=== PATIENT | female | born 1995 | race African-American/Black ===

== ENCOUNTER 2024-03-02 15:56 | Observation (INO) | payer SELFPAY ==
--- NOTE | ~2024-03-02 | US_ITS ---
EXAMINATION: US pelvic complete w TV DATE: 03/03/2024 14:04 INDICATION: Pelvic mass. TECHNIQUE: Multiple transabdominal and transvaginal sonographic images of the pelvis were obtained. COMPARISON: CT abdomen and pelvis 03/02/2024 FINDINGS: TRANSABDOMINAL ULTRASOUND: The uterus measures 9.9 x 4.4 x 5.0 cm. There is physiologic free fluid in the pelvis. TRANSVAGINAL ULTRASOUND: The endometrial complex measures 4 mm in thickness. There is an 8.7 x 5.9 x 6.9 cm hypoechoic mass at the posterior margin of the uterus. The right ovary measures 2.7 x 2.2 x 2.5 cm. The left ovary donna ures 3.1 x 1.5 x 2.6 cm. There is normal vascular flow in the ovaries. IMPRESSION: 1. 8.7 cm mass at the posterior margin of the uterus, consistent with a subserosal fibroid. Reviewed, dictated and finalized at location A. GRINDER IMPRESSION: 1. 8.7 cm mass at the posterior margin of the uterus, consistent with a subsero abiel fibroid.
--- NOTE | ~2024-03-02 | CT_ITS ---
CLINICAL INDICATION: Right lower quadrant wound COMPARISON: None. TECHNIQUE: Multiple contiguous axial images of the abdomen and pelvis were performed following the ad ministration of with 100 mL Omnipaque-350 intravenous contrast The dose-length product (DLP) was 1125.98 mGy-cm. Automated exposure control and iterative reconstruction technique were employed. FINDINGS/OBSERVATIONS: Visualized lower thorax: The bilateral lung bases are clear. The heart is of normal size, without pericardial effusion. Small hiatal hernia is present. Liver: The liver is enlarged measuring 19.7 cm in longitudinal dimension. Fatty infiltration is also noted. Gallbladder and biliary system: The gallbladder is minimally distended, and otherwise unremarkable. Pancreas: The pancreas enhances homogeneously without ductal dilatation. Spleen: The spleen enhances homogeneously and is not enlarged measuring 8 cm in longitudinal dimension. Kidneys: The bilateral kidneys enhance symmetrically without hydronephrosis or renal calculi. Adrenal glands: Unremarkable. Gastrointestinal tract: Colonic diverticulosis without surrounding inflammatory change. Appendix: The air-filled appendix is of normal caliber (axial series, images 108-127 or prior) Vasculature: The bilateral gonadal veins are enlarged with extensive varices in the pelvis, findings suggesting pe lvic congestion syndrome for which clinical correlation is needed. Lymph nodes: Scattered nonpathologically enlarged lymph nodes are identified within the mesentery and retroperiton eum, not uncommon for a patient of this age. Pelvic structures: The bladder is decompressed, and otherwise unremarkable. The uterus is anteverted and anteflexed. A heterogeneous mass is identified within the deep pelvis, c ranial to the uterus, possibly (however not likely) an enlarged fibroid measuring 7 x 6 x 8.2 cm (ant erior to posterior x medial to lateral x cranial to caudal dimension). The remainder of the uterus de monstrates an otherwise smooth contour. The right ovary is not definitively visualized. Small bowel is tethered to this mass without obstruction. Free fluid is identified within the pelvis, although not more than one would expect for physiologic f ree fluid in a patient of this age. Body wall and musculoskeletal: Fat-containing umbilical hernia. Within the right lower quadrant of the pannus is skin thickening and infiltration of the underlying s oft tissues without a discrete abscess additional abnormality. Degenerative disease is identified within the lower lumbar spine, with grade 1 anterolisthesis of L4 on L5 with a protruding disc (which demonstrates calcification) at this level. Spondylosis is also noted at this level. IMPRESSION: Indeterminate 8.2 cm mass within the right hemipelvis, as detailed above. Superficial soft tissue infiltration within the area of clinical concern. Severe degenerative disease at the level of L4/L5, as detailed above. Fatty infiltration of an enlarged liver Reviewed, dictated and finalized at location A. ER OPERATOR
[2024-03-02 15:58] VITALS: BP 148/93; PULSE 99; RESP 16; TEMP 36.3; O2SAT 100
--- NOTE | 2024-03-02 17:13 | ED_ITS ---
HPI - Wound/Laceration General Chief Complaint: Wound/Laceration Stated Complaint: wound on abdomen Time Seen by Provider: 03/02/24 17:04 History of Present Illness HPI narrative: 28 year-old female with history of type 2 diabetes on metformin presents to emergency department for a wound to the right lower quadrant of her abdomen. Patient states there is a small pimple to the right lower quadrant of her abdomen that she noticed 2 weeks ago. States she believes that her jeans rubbed on the wound and caused it to enlarge 2 days ago. The patient states she noticed some clear drainage from the fluid a few days ago. She reports pain to the area. Denies fever, nausea vomiting, changes in stool habits. She states that she does not check her blood sugar at home. States she takes her metformin a few times a week but does not take it daily as prescribed. Related Data Home Medications Medication Instructions Recorded Confirmed metformin 1,000 mg tablet 1,000 mg PO BID 03/02/24 03/02/24 Allergies Allergy/AdvReac Type Severity Reaction Status Date / Time No Known Allergies Allergy Verified 03/02/24 16:00 Review of Systems Review of Systems: All systems reviewed & are unremarkable except as noted in HPI and below PMFSH Past Medical History Medical History (Updated 03/02/24 @ 23:58 by Katy Villavicencio DO) Obesity (BMI 30-39.9) Type 2 diabetes mellitus Surgical History Surgical History (Updated 03/02/24 @ 23:16 by Katy Villavicencio DO) No history of previous surgery Family History Family History Grandparent Congestive heart failure Hypertension Diabetes mellitus Sibling Congestive heart failure Diabetes mellitus Mother Hypertension Social History Social History (Updated 03/02/24 @ 23:29 by Katy Villavicencio DO) Social History: She reports that she is single and is never been . She is with her a boyfriend of 4 months currently. 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 She reports that her sister lives with her and that she helps provide care for her sister who has multiple complications due to diabetes. She has a pit bull at home. She is a lifelong nonsmoker and does not drink alcohol. Code status: Full code Surrogate decision maker: Mother Smoking status: Never smoker Substance use type: marijuana Last use: 03/02/24 Do You Feel Safe in your Home?: Yes Lack of Transportation: No Lack of Food: Never True Current Housing: I Have Housing Concerned About Future Housing: No Difficulty Paying Gas/Electric Bills: No Difficulty Paying for Meds: YES Currently Unemployed: No Education: Bachelor's Degree Difficulty w/ Childcare or Family Care: No Spiritual care concerns: No Exam Narrative: GENERAL: Well-appearing, well-nourished, and in no acute distress. HEAD: Normocephalic, atraumatic. EYES: EOMI. ENT: Nares clear, no rhinorrhea or epistaxis. Mucous membranes moist. NECK: Supple. CHEST: Clear to auscultation. No respiratory distress. HEART: Regular rate and rhythm. No murmur heard. Normal peripheral pulses. ABDOMEN: Soft, nontender, nondistended, normal active bowel sounds. See skin exam EXTREMITIES: Normal range of motion. No edema. SKIN: 4 cm x 3 cm oval-shaped ulcerative wound to the right lower quadrant of the abdomen with malodorous purulent drainage and exposed adipose tissue. Surrounding induration with No crepitus or vesicles. NEURO: No focal deficits. Alert and oriented x3 Course Vital Signs Vital signs: Vital Signs Temperature 97.3 F L 03/02/24 15:58 Pulse Rate 99 03/02/24 15:58 Respiratory Rate 16 03/02/24 15:58 Blood Pressure 148/93 H 03/02/24 15:58 Pulse Oximetry 100 03/02/24 15:58 Temperature 97.4 F L 03/02/24 21:26 Pulse Rate 78 03/02/24 21:26 Respiratory Rate 14 03/02/24 21:26 Blood Pressure 136/81 03/02/24 21:26 Pulse Oximetry 100 03/02/24 21:26 Oxygen Delivery Room Air 03/02/24 22:15 MDM - Wound/Laceration MDM Narrative Medical decision making narrative: 28-year-old female history of type 2 diabetes presents to emergency department for when to right lower quadrant. Vitals with elevated blood pressure 148/93, otherwise unremarkable. Exam is significant for the above. CBC shows no leukocytosis. CRP is elevated to 2.2 and ESR is elevated to 23. Chemistries without significant findings but does show hyperglycemia of 254 with a normal bicarb and anion gap. is negative. Lactic normal 1.3. CT abdomen pelvis shows an indeterminate 8.2 cm mass within the right hemipelvis, possibly enlarged uterine fibroid. Within the right lower quadrant of the pannus is skin thickening and infiltration of the underlying soft tissues without a discrete abscess. There is fatty infiltration of an enlarged liver. Patient updated on workup. Blood cultures procalcitonin are pending. Feel she would benefit from IV antibiotics and wound care, possibly may need to see General surgery for wound debridement. Patient was started on vancomycin Lab Data 03/02/24 17:28 03/02/24 17:28 Labs: Lab Results 03/02/24 03/02/24 03/02/24 Range/Units 17:28 17:28 17:28 WBC 7.3 (4.5-10.0) K/mm3 RBC 4.99 (4.2-5.4) M/mm3 Hgb 12.8 (12.0-15.0) g/dL Hct 40.0 (37.0-47.0) % MCV 80.2 (80-100) fl MCH 25.7 L (26-34) pg MCHC 32.0 (32-36) g/dl RDW 13.8 (11.5-14.5) % Plt Count 412 H (150-375) k/mm3 MPV 9.9 (7.4-10.4) fl Immature Gran % (Auto) 0.4 (0-0.5) % Neut % (Auto) 63.8 (45.5-73.1) % Lymph % (Auto) 26.1 (18.3-44.2) % [place] % (Auto) 8.2 (2.6-8.5) % Eos % (Auto) 1.0 (0-4.4) % Baso % (Auto) 0.5 (0.2-1.2) % Lymph # (Auto) 1.91 (0.9-3.2) K/mm3 [place] # (Auto) 0.6 (0.1-0.6) K/mm3 Eos # (Auto) 0.1 (0-0.3) K/mm3 Baso # (Auto) 0.0 (0.0-0.1) K/mm3 Abs Immat Gran (auto) 0.03 (0.00-0.031) K/mm3 Absolute Neuts (auto) 4.7 (1.3-6.7) K/mm3 Absolute Nucleated RBC 0.000 (0.0-0.012) K/mm3 Nucleated RBC % 0.0 (0.0-0.2) % ESR 23 H (0-20) mm/hr Sodium 136 L (137-145) mmol/L Potassium 3.6 (3.4-5.0) mmol/L Chloride 100 (98-107) mmol/L Carbon Dioxide 27 (22-30) mmol/L Anion Gap 9 (4-12) mmol/L BUN 10 (7-17) mg/dL Creatinine 0.60 L 0.60 L (0.7-1.0) mg/dL Estim Creat Clear Calc 146 146 ml/min Estimated GFR > 60 (59 - ) Glucose (65-110) mg/dL Lactic Acid (0.7-2.0) mmol/L Calcium (8.4-10.2) mg/dL Total Bilirubin (0.2-1.3) mg/dL AST (14-36) U/L ALT (6-35) U/L Alkaline Phosphatase (38-126) U/L C-Reactive Protein (<1.0) mg/dL Total Protein (6.3-8.2) g/dL Albumin (3.5-5.1) g/dL Procalcitonin ng/mL POC Urine HCG, Qual (Negative) 03/02/24 03/02/24 Range/Units 17:28 18:16 WBC (4.5-10.0) K/mm3 RBC (4.2-5.4) M/mm3 Hgb (12.0-15.0) g/dL Hct (37.0-47.0) % MCV (80-100) fl MCH (26-34) pg MCHC (32-36) g/dl RDW (11.5-14.5) % Plt Count (150-375) k/mm3 MPV (7.4-10.4) fl Immature Gran % (Auto) (0-0.5) % Neut % (Auto) (45.5-73.1) % Lymph % (Auto) (18.3-44.2) % [place] % (Auto) (2.6-8.5) % Eos % (Auto) (0-4.4) % Baso % (Auto) (0.2-1.2) % Lymph # (Auto) (0.9-3.2) K/mm3 [place] # (Auto) (0.1-0.6) K/mm3 Eos # (Auto) (0-0.3) K/mm3 Baso # (Auto) (0.0-0.1) K/mm3 Abs Immat Gran (auto) (0.00-0.031) K/mm3 Absolute Neuts (auto) (1.3-6.7) K/mm3 Absolute Nucleated RBC (0.0-0.012) K/mm3 Nucleated RBC % (0.0-0.2) % ESR (0-20) mm/hr Sodium (137-145) mmol/L Potassium (3.4-5.0) mmol/L Chloride (98-107) mmol/L Carbon Dioxide (22-30) mmol/L Anion Gap (4-12) mmol/L BUN (7-17) mg/dL Creatinine (0.7-1.0) mg/dL Estim Creat Clear Calc ml/min Estimated GFR > 60 (59 - ) Glucose 254 H (65-110) mg/dL Lactic Acid 1.3 (0.7-2.0) mmol/L Calcium 9.5 (8.4-10.2) mg/dL Total Bilirubin 0.6 (0.2-1.3) mg/dL AST 29 (14-36) U/L ALT 19 (6-35) U/L Alkaline Phosphatase 94 (38-126) U/L C-Reactive Protein 2.2 H (<1.0) mg/dL Total Protein 9.0 H (6.3-8.2) g/dL Albumin 4.2 (3.5-5.1) g/dL Procalcitonin 0.1 ng/mL POC Urine HCG, Qual Negative (Negative) Discharge Plan Discharge Clinical Impression: Wound, open, abdominal wall, anterior Qualifiers: Encounter type: initial encounter Qualified Code(s): S31.109A - Unspecified open wound of abdominal wall, unspecified quadrant without penetration into peritoneal cavity, initial encounter Patient Disposition: Still a Patient Condition: Stable
[2024-03-02 17:45] LABS: Basophils Percent Auto 0.5 % (0.2-1.2); Eosinophils Absolute Auto 0.1 K/mm3 (0-0.3); Hemoglobin 12.8 g/dL (12.0-15.0); Immature Granulocyte Absolute 0.03 K/mm3 (0.00-0.031); Immature Granulocyte Percent A 0.4 % (0-0.5); Lymphocytes Absolute Auto 1.91 K/mm3 (0.9-3.2); Lymphocytes Percent Auto 26.1 % (18.3-44.2); Mean Corpuscular Hemoglobin 25.7 pg (26-34); Mean Corpuscular Volume 80.2 fl (80-100); Mean Platelet Volume 9.9 fl (7.4-10.4); Monocytes Absolute Auto 0.6 K/mm3 (0.1-0.6); Monocytes Percent Auto 8.2 % (2.6-8.5); Neutrophils Absolute Auto 4.7 K/mm3 (1.3-6.7); Neutrophils Percent Auto 63.8 % (45.5-73.1); Platelet Count Result 412 k/mm3 (150-375); Red Blood Count 4.99 M/mm3 (4.2-5.4); Red Cell Distribution Width 13.8 % (11.5-14.5); White Blood Count 7.3 K/mm3 (4.5-10.0)
[2024-03-02 18:00] LABS: Lactic Acid Reflex 1.3 mmol/L (0.7-2.0)
[2024-03-02 18:04] LABS: Alanine Aminotransferase 19 U/L (6-35); Albumin Level 4.2 g/dL (3.5-5.1); Alkaline Phosphatase 94 U/L (38-126); Anion Gap 9 mmol/L (4-12); Aspartate Amino Transferase 29 U/L (14-36); Bilirubin,Total 0.6 mg/dL (0.2-1.3); Blood Urea Nitrogen 10 mg/dL (7-17); CRP 2.2 mg/dL (<1.0); Calcium 9.5 mg/dL (8.4-10.2); Carbon Dioxide 27 mmol/L (22-30); Chloride 100 mmol/L (98-107); Estimated CRCL calculation 146 ml/min; Estimated Glomerular Filt Rate > 60; Glucose 254 mg/dL (65-110); Potassium 3.6 mmol/L (3.4-5.0); Sodium 136 mmol/L (137-145)
[2024-03-02 18:17] LABS: BEDSIDEPREGUCG Negative (Negative)
[2024-03-02 18:30] LABS: Erythrocyte Sedimentation Rate 23 mm/hr (0-20)
[2024-03-02 19:10] VITALS: BP 138/83; PULSE 98; RESP 16; TEMP 36.6; O2SAT 100
[2024-03-02] MEDS: MORPHINE SULFATE (*CRX) 4 MG/ML INJ IV PUSH (19:11)
--- NOTE | 2024-03-02 19:57 | PM.IMHP ---
H&P: HPI History of Present Illness Date/Time: 03/02/24 19:57 Chief Complaint: Abdominal wound Narrative: 28-year-old female with past medical history of uncontrolled type 2 diabetes mellitus and obesity who presented to the ER from home due to a wound to her right lower pannus. Patient reported that 2 weeks ago she had a small pimple to the right lower abdomen. She reported that she did not pick or prod the area. The pustule did open on its own. It was a small area consistent with prior such sites that she has had before. A few days ago she noticed a small amount of clear fluid draining from the area. Then 2 days ago she noticed a wound was much larger and was tender to touch. She also noticed some yellow tissue in the area. She has had diabetes since approximately 2016. She is on metformin is post to take it b.i.d.. She reports that she frequently misses her metformin due to her busy work schedule. She does not check her blood sugars. Her glucoses on arrival to the ER were around 250. She has not had any fevers, chills, abdominal pain, nausea, vomiting or urinary symptoms. CT scan of the abdomen pelvis were performed in the ER and demonstrated superficial soft tissue infiltration in the area of the open wound. She also had incidental finding of indeterminate E 0.2 cm by 6 x 7 cm mass in the right hemipelvis. She reports a distant history of metrorrhagia for which she was placed on control pills. She reports she stopped the control pills in May in his had normal menstrual cycles since then. She denies any excessive menstrual cramps or abdominal pain. She had a negative urine test in the ER. She denies any urinary frequency or symptoms. She states that she is currently at the end of her menstrual cycle. She has developed hirsutism was a moved since around the beginning of . She is obese. She states her boyfriend of 4 months this told her that she occasionally snores. She denies any excessive daytime fatigue or sleepiness. It sounds as if her weight has been stable. She has not followed up with a garage supervisor recently. She has not followed up with an eye doctor in the last year or 2. At the time of my evaluation the patient's right eye did not initially move in a conjugate manner with the left eye but this resolved on re-evaluation. She reports that her father has a lazy eye but she has never been diagnosed with visual issues. She denies double vision. Review of Systems Review of Systems: 12 systems were reviewed with pertinent positives and negatives per HPI. Except as documented in the HPI, all other systems were reviewed and are negative. [facility] Past Medical History Medical History (Updated 03/02/24 @ 23:58 by Katy Villavicencio DO) Obesity (BMI 30-39.9) Type 2 diabetes mellitus Surgical History Surgical History (Updated 03/02/24 @ 23:16 by Katy Villavicencio DO) No history of previous surgery Family History Family History Grandparent Congestive heart failure Hypertension Diabetes mellitus Sibling Congestive heart failure Diabetes mellitus Mother Hypertension Social History Social History (Updated 03/02/24 @ 23:29 by Katy Villavicencio DO) Social History: She reports that she is single and is never been . She is with her a boyfriend of 4 months currently. 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 She reports that her sister lives with her and that she helps provide care for her sister who has multiple complications due to diabetes. She has a pit bull at home. She is a lifelong nonsmoker and does not drink alcohol. Code status: Full code Surrogate decision maker: Mother Smoking status: Never smoker Substance use type: marijuana Last use: 03/02/24 Do You Feel Safe in your Home?: Yes Lack of Transportation: No Lack of Food: Never True Current Housing: I Have Housing Concerned About Future Housing: No Difficulty Paying Gas/Electric Bills: No Difficulty Paying for Meds: YES Currently Unemployed: No Education: Bachelor's Degree Difficulty w/ Childcare or Family Care: No Spiritual care concerns: No Meds Home Medications and Allergies Home Medications Medication Instructions Recorded Confirmed Type metformin 1,000 mg tablet 1,000 mg PO BID 03/02/24 03/02/24 History Allergies Allergy/AdvReac Type Severity Reaction Status Date / Time No Known Allergies Allergy Verified 03/02/24 16:00 Vital Signs Vital Signs - 24 hr 03/02/24 15:58 Temperature 97.3 F L Pulse Rate 99 Respiratory Rate 16 Blood Pressure 148/93 H Pulse Oximetry 100 Exam Narrative: Weight 98.7 kg BMI 35.1 Const: Other: Obese, no acute distress, appears stated age HENMT: Other: Mucous membranes are tacky, lips are dry and peeling, head is normocephalic atraumatic Eyes: Other: No conjunctival pallor, no scleral icterus, pupils are equal and reactive, patient transient delay and medial motion of the right eye Neck: Other: Large neck circumference, no JVD, no obvious thyromegaly Chest: Other: Clear to auscultation bilaterally, no increased work of breathing Resp: Other: Clear to auscultation bilaterally, no increased work of breathing Cardio: Other: Regular rate, regular rhythm, 2+ bilateral radial pedal pulses GI: Other: Soft, nontender, obese, open wound to the right lower pannus with a central area of yellow overlying tissue questionable necrotic fat, small amount of serous drainage, no surrounding erythema or warmth, no obvious areas of induration or fluctuance Skin: Other: Wound of the anterior right lower abdominal wall at the right lower pannus as discussed above, small area of firm nodular darkly pigmented skin about 3 in superior and 2 in lateral from that wound consistent with likely previous area of folliculitis that is resolved Neuro: Other: Alert oriented, speech is clear, no facial asymmetry, transient lag of the right eye in the medial direction which resolved on repeat evaluation, otherwise no localizing neurologic deficits noted during the course of conversation. Extrem: Other: No clubbing, cyanosis or edema, shoulder the feet are dirty, no wounds noted to the feet, pes planus of the left foot Psych: Other: Appropriate mood and affect, pleasant and cooperative, judgment and insight intact H&P: Results Labs Labs: Laboratory Tests 03/02/24 17:28 03/02/24 17:28 03/02/24 03/02/24 03/02/24 17:28 17:28 17:28 WBC 7.3 RBC 4.99 Hgb 12.8 Hct 40.0 MCV 80.2 MCH 25.7 L MCHC 32.0 RDW 13.8 Plt Count 412 H MPV 9.9 Immature Gran % (Auto) 0.4 Neut % (Auto) 63.8 Lymph % (Auto) 26.1 [place] % (Auto) 8.2 Eos % (Auto) 1.0 Baso % (Auto) 0.5 Lymph # (Auto) 1.91 [place] # (Auto) 0.6 Eos # (Auto) 0.1 Baso # (Auto) 0.0 Abs Immat Gran (auto) 0.03 Absolute Neuts (auto) 4.7 Absolute Nucleated RBC 0.000 Nucleated RBC % 0.0 ESR 23 H Sodium 136 L Potassium 3.6 Chloride 100 Carbon Dioxide 27 Anion Gap 9 BUN 10 Creatinine 0.60 L 0.60 L Estim Creat Clear Calc 146 146 Estimated GFR > 60 Glucose Hemoglobin A1c Lactic Acid Calcium Total Bilirubin AST ALT Alkaline Phosphatase C-Reactive Protein Total Protein Albumin Procalcitonin POC Urine HCG, Qual 03/02/24 03/02/24 03/02/24 17:28 18:16 21:51 WBC RBC Hgb Hct MCV MCH MCHC RDW Plt Count MPV Immature Gran % (Auto) Neut % (Auto) Lymph % (Auto) [place] % (Auto) Eos % (Auto) Baso % (Auto) Lymph # (Auto) [place] # (Auto) Eos # (Auto) Baso # (Auto) Abs Immat Gran (auto) Absolute Neuts (auto) Absolute Nucleated RBC Nucleated RBC % ESR Sodium Potassium Chloride Carbon Dioxide Anion Gap BUN Creatinine Estim Creat Clear Calc Estimated GFR > 60 Glucose 254 H Hemoglobin A1c 13.4 H Lactic Acid 1.3 Calcium 9.5 Total Bilirubin 0.6 AST 29 ALT 19 Alkaline Phosphatase 94 C-Reactive Protein 2.2 H Total Protein 9.0 H Albumin 4.2 Procalcitonin 0.1 POC Urine HCG, Qual Negative Impressions Abdomen/Pelvis CT 03/02/24 18:57 IMPRESSION: Indeterminate 8.2 cm mass within the right hemipelvis, as detailed above. Superficial soft tissue infiltration within the area of clinical concern. Severe degenerative disease at the level of L4/L5, as detailed above. Fatty infiltration of an enlarged liver Assessment and Plan Assessment and plan (1) Wound, open, abdominal wall, anterior: Qualifiers: Encounter type: initial encounter Qualified Code(s): S31.109A - Unspecified open wound of abdominal wall, unspecified quadrant without penetration into peritoneal cavity, initial encounter Code(s): S31.109A - Unspecified open wound of abdominal wall, unspecified quadrant without penetration into peritoneal cavity, initial encounter Status: Acute Assessment and Plan: Patient's wound does not appear to be overtly infected but she does have mild elevated CRP and ESR. She does have a central area of tissue the appears somewhat necrotic seems consistent with may be fat necrosis. Will consult wound care for localized debridement and wound management. Will place patient on vancomycin and wound cultures have been obtained and are pending. Will repeat CBC in a.m.. (2) Type 2 diabetes mellitus with hyperglycemia, without long-term current use of insulin: Code(s): E11.65 - Type 2 diabetes mellitus with hyperglycemia Status: Acute Assessment and Plan: I discussed the importance of compliance with medication therapy with the patient and the importance of euglycemia in treating wounds affectively. Other risks of hyperglycemia and uncontrolled diabetes were also discussed with patient including the risk of diabetic neuropathy, nephropathy and retinopathy. I encouraged patient to follow-up with her aircraft instrument engineer/closing coordinator. Will resume patient's home metformin. Patient will likely need secondary medications for glycemic control. Some of the patient's hyperglycemia may also be due to acute wound/?Infection. Will place patient on low-dose sliding scale insulin (patient is insulin naive) with Accu-Cheks a.c. HS and hypoglycemia protocol as needed. Consistent carbohydrate diet has been ordered. (3) Pelvic mass: Code(s): R19.00 - Intra-abdominal and pelvic swelling, mass and lump, unspecified site Status: Acute Assessment and Plan: Patient he has a follow-up with apiculture teacher as outpatient for pelvic and transvaginal ultrasound. Patient is having normal menstrual cycles more so recently but does have relatively recent development of Hirsutism within the last 4 years. She may have underlying PCOS, ovarian mass or according to radiology less likely uterine fibroid. Patient is not having acute symptoms of this at this time and can not be evaluated in the outpatient setting. Plan Patient has been admitted as observation status. Quality VTE Prophylaxis VTE prophylaxis: pharmacologic ordered (Lovenox 40 mg subQ daily.) Hospitalist [facility] Advance Care Plan I have confirmed that the patient's Advanced Care Plan is present, code status is documented, or surrogate decision maker is listed in patient medical record.: Yes Medication Reconciliation I have utilized all available resources to obtain, update and review the patients current medications (includes all prescriptions, OTC, herbals, cannabis, and nutritional supplements).: Yes
[2024-03-02 20:05] LABS: Procalcitonin 0.1 ng/mL
[2024-03-02] MEDS: VANCOMYCIN 1,500 MG/NS 500 ML 1,500 MG/500 ML BAG 250 MG IVPB (20:11)
[2024-03-02 20:21] LABS: Estimated CRCL calculation 146 ml/min; Estimated Glomerular Filt Rate > 60
[2024-03-02 21:26] VITALS: BP 136/81; PULSE 78; RESP 14; TEMP 36.3; O2SAT 100; BMI 35.1
[2024-03-02 22:23] LABS: Hemoglobin A1C 13.4 % (<5.7)
[2024-03-03 05:29] VITALS: BP 114/67; PULSE 71; RESP 12; TEMP 36.2; O2SAT 100
[2024-03-03 06:46] LABS: Basophils Percent Auto 0.4 % (0.2-1.2); Eosinophils Absolute Auto 0.1 K/mm3 (0-0.3); Eosinophils Percent Auto 1.7 % (0-4.4); Hematocrit 37.9 % (37.0-47.0); Hemoglobin 11.4 g/dL (12.0-15.0); Immature Granulocyte Absolute 0.03 K/mm3 (0.00-0.031); Immature Granulocyte Percent A 0.4 % (0-0.5); Lymphocytes Absolute Auto 1.92 K/mm3 (0.9-3.2); Lymphocytes Percent Auto 23.2 % (18.3-44.2); Mean Corpuscular HGB Conc 30.1 g/dl (32-36); Mean Corpuscular Hemoglobin 24.5 pg (26-34); Mean Corpuscular Volume 81.3 fl (80-100); Mean Platelet Volume 9.9 fl (7.4-10.4); Monocytes Absolute Auto 0.7 K/mm3 (0.1-0.6); Monocytes Percent Auto 8.8 % (2.6-8.5); Neutrophils Absolute Auto 5.4 K/mm3 (1.3-6.7); Neutrophils Percent Auto 65.5 % (45.5-73.1); Platelet Count Result 390 k/mm3 (150-375); Red Blood Count 4.66 M/mm3 (4.2-5.4); White Blood Count 8.3 K/mm3 (4.5-10.0)
[2024-03-03 07:00] LABS: Anion Gap 6 mmol/L (4-12); Blood Urea Nitrogen 9 mg/dL (7-17); Calcium 8.7 mg/dL (8.4-10.2); Carbon Dioxide 25 mmol/L (22-30); Chloride 104 mmol/L (98-107); Estimated CRCL calculation 138 ml/min; Estimated Glomerular Filt Rate > 60; Glucose 192 mg/dL (65-110); Potassium 3.4 mmol/L (3.4-5.0); Sodium 135 mmol/L (137-145)
[2024-03-03 07:33] LABS: Glucose Point of Care 201 mg/dl (65-105)
[2024-03-03 08:04] VITALS: O2SAT 100
[2024-03-03] MEDS: ENOXAPARIN 40 MG/0.4 ML SYRINGE SUB-Q (08:27)
[2024-03-03] MEDS: VANCOMYCIN 1,500 MG/NS 500 ML 1,500 MG/500 ML BAG 250 MG IVPB ×2 (08:27→20:56)
[2024-03-03] MEDS: POTASSIUM CHLORIDE 20 MEQ ER TABLET 40 MEQ PO (08:32)
[2024-03-03] MEDS: metFORMIN HCL 500 MG TABLET 1000 MG PO ×2 (08:32→16:47)
[2024-03-03] MEDS: HYDROcodone/acetaminophen (*CRX) 5-325 MG TABLET 1 TAB PO ×2 (09:08→18:40)
--- NOTE | 2024-03-03 09:10 | P.CONGS_ITS ---
Assessment and Plan Assessment and plan (1) Wound, open, abdominal wall, anterior: Qualifiers: Encounter type: initial encounter Qualified Code(s): S31.109A - Unspecified open wound of abdominal wall, unspecified quadrant without penetr ation into peritoneal cavity, initial encounter Code(s): S31.109A - Unspecified open wound of abdominal wall, unspecified quadrant without penetration into peritoneal cavity, initial encounter Status: Acute Assessment and Plan: The patient has a necrotic RLQ abdominal wound in the setting of uncontrolled diabetes. CT scan does not show any deeper abscess and there does not appear to be any significant surrounding cellulitis on exam. There is some necrotic tissue in the center of the wound that would benefit from debridement, which could be done at the bedside. I discussed the procedure, risks, benefits, and alternatives with the patient. She agrees to proceed. We also discussed the need for daily wound care following the procedure, which the patient feels she can handle doing at home. I will have the nurse gather supplies and consent with plans to proceed with debridement today. (2) Type 2 diabetes mellitus with hyperglycemia, without long-term current use of insulin: Code(s): E11.65 - Type 2 diabetes mellitus with hyperglycemia Status: Acute Assessment and Plan: Uncontrolled type II diabetes with hemoglobin A1C 13.4. Discussed the importance of glycemic control with the patient in the setting of a wound. She was educated on the importance of complying with her diet and monitoring her diabetes at home. Management per Hospitalist. (3) Pelvic mass: Code(s): R19.00 - Intra-abdominal and pelvic swelling, mass and lump, unspecified site Status: Acute Assessment and Plan: Incidental finding of an 8 cm mass in the right hemipelvis. The CT does suggest that it is tethered to some small bowel but not causing an obstruction or any acute issues. Will need further workup of the pelvic mass, which could also be done as an outpatient. (4) Obesity (BMI 30-39.9): Code(s): E66.9 - Obesity, unspecified Status: Chronic Plan I have discussed the patient's case and plan of care with Dr. Colon. Thank you for allowing us to see the patient in consultation and we will continue to follow along with you. History of Present Illness Consult details Consult date: 03/03/24 Reason for consult: other (Abdominal wound requiring debridement) Requesting physician: Stanley Banks MD Narrative: This is a 28-year-old woman with uncontrolled type 2 diabetes, who we have been asked to see for an abdominal wound that may require surgical debridement. She reports noticing a pimple in her right lower abdomen a few weeks ago. There were no changes in this area up until 3-4 days ago. She thinks this area was irritated by her waistband from her jeans/pants. Over the weekend, she noticed a wound in this area. Over the past few days, the wound has gotten larger and more tender. She is a diabetic, but does not check her blood glucose levels and admits to being noncompliant with her diet. Due to her enlarging wound, she decided to come into the ER for evaluation last night. Labs showed a normal white blood cell count, glucose 254, and hemoglobin A1c 13.4. CT scan of the abdomen and pelvis showed superficial soft tissue infiltration at the right lower quadrant, but no identifiable abscess. Incidentally noted was an 8.2 cm mass within the right hemipelvis, fatty infiltration of an enlarged liver, and severe degenerative disc disease at the level of L4/L5. She was admitted to the hospitalist service. She had a wound culture of the right lower quadrant abdominal wound. She has been started on IV vancomycin. Wound care was consulted for the right lower quadrant abdominal wound and they recommended surgical consultation for possible debridement. The patient is now seen on the medical floor. She denies any previous skin or soft tissue infections. Denies history of MRSA. Review of Systems Review of Systems: All systems reviewed & are unremarkable except as noted in HPI and below PMFSH Past Medical History Medical History (Updated 03/03/24 @ 09:41 by DIOR Cunha) Obesity (BMI 30-39.9) Type 2 diabetes mellitus Surgical History Surgical History No history of previous surgery Family History Family History Grandparent Congestive heart failure Hypertension Diabetes mellitus Sibling Congestive heart failure Diabetes mellitus Mother Hypertension Social History Social History Social History: She reports that she is single and is never been . She is with her a boyfriend of 4 months currently. 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 She reports that her sister lives with her and that she helps provide care for her sister who has multiple complications due to diabetes. She has a pit bull at home. She is a lifelong nonsmoker and does not drink alcohol. Code status: Full code Surrogate decision maker: Mother Smoking status: Never smoker Substance use type: marijuana Last use: 03/02/24 Do You Feel Safe in your Home?: Yes Lack of Transportation: No Lack of Food: Never True Current Housing: I Have Housing Concerned About Future Housing: No Difficulty Paying Gas/Electric Bills: No Difficulty Paying for Meds: YES Currently Unemployed: No Education: Bachelor's Degree Difficulty w/ Childcare or Family Care: No Spiritual care concerns: No Meds Home Medications and Allergies Home Medications Medication Instructions Recorded Confirmed Type metformin 1,000 mg tablet 1,000 mg PO BID 03/02/24 03/02/24 History Allergies Allergy/AdvReac Type Severity Reaction Status Date / Time No Known Allergies Allergy Verified 03/02/24 16:00 Vital Signs Vital Signs - 24 hr 03/02/24 15:58 03/02/24 19:10 03/02/24 21:26 Temperature 97.3 F L 98 F 97.4 F L Pulse Rate 99 98 78 Respiratory Rate 16 16 14 Blood Pressure 148/93 H 138/83 136/81 Pulse Oximetry 100 100 100 Oxygen Delivery Fraction of Inspired Oxygen 03/02/24 22:15 03/03/24 05:29 03/03/24 08:04 Temperature 97.1 F L Pulse Rate 71 Respiratory Rate 12 Blood Pressure 114/67 Pulse Oximetry 100 100 Oxygen Delivery Room Air Room Air Fraction of Inspired Oxygen 21 Exam Const: General: comfortable and no acute distress Nutritional Appearance: obese Orientation/consciousness: patient oriented x3 HENMT: Head: normocephalic and atraumatic Ears: hearing grossly normal bilaterally Mouth: Yes moist mucous membranes Eyes: General: appearance normal, both eyes and all related structures Pupils: Equal, round and reactive pupils present Neck: Neck: normal visual inspection and full ROM Resp: Effort & Inspection: no respiratory distress Auscultation: clear to auscultation bilaterally Cardio: Rate: regular rate Rhythm: regular rhythm Heart sounds: S1 normal heart sound present Peripheral pulses: Peripheral pulses 2+ throughout GI: Inspection: non-distended, Pannus present and obesity GI Palp: Yes Soft to palpation, Yes Tenderness to palpation present (GI) (tenderness only directly at the RLQ abdominal wound), No Guarding due to palpation present (GI) and No Rebound tenderness present Percussion: Yes normal to percussion Auscultation: normal bowel sounds Rectal Exam: deferred Skin: General skin exam: normal color Other: RLQ abdominal wound measuring 5 x 3 x 0.5 cm that has a soft barrera loose eschar in the center of the wound with scant yellow drainage and slough. When moving the loose barrera eschar, the base of the wound below appears pink and the wound appears superficial. She is very tender at the wound. There is mild induration around the edges of the wound but no significant surrounding erythema. No crepitus or obvious areas of fluctuance. Neuro: General: moves all extremities and no focal motor deficits Speech: normal speech Motor exam (neuro): 5/5 motor strength present throughout Extrem: General: normal to inspection and no edema Psych: Mental Status: mental status grossly normal Attitude: cooperative Insight: Good insight present (Psych) Judgement: Good judgement present (Psych) Results Labs 03/03/24 06:24 03/03/24 06:24 Labs: Abnormal lab results 03/02/24 03/02/24 03/02/24 Range/Units 17:28 17:28 21:51 Hgb (12.0-15.0) g/dL MCH 25.7 L (26-34) pg MCHC (32-36) g/dl Plt Count 412 H (150-375) k/mm3 [place] % (Auto) (2.6-8.5) % [place] # (Auto) (0.1-0.6) K/mm3 ESR 23 H (0-20) mm/hr Sodium 136 L (137-145) mmol/L Creatinine 0.60 L 0.60 L (0.7-1.0) mg/dL Glucose 254 H (65-110) mg/dL POC Capillary Glucose (65-105) mg/dl Hemoglobin A1c 13.4 H (<5.7) % C-Reactive Protein 2.2 H (<1.0) mg/dL Total Protein 9.0 H (6.3-8.2) g/dL 03/03/24 03/03/24 Range/Units 06:24 07:27 Hgb 11.4 L (12.0-15.0) g/dL MCH 24.5 L (26-34) pg MCHC 30.1 L (32-36) g/dl Plt Count 390 H (150-375) k/mm3 [place] % (Auto) 8.8 H (2.6-8.5) % [place] # (Auto) 0.7 H (0.1-0.6) K/mm3 ESR (0-20) mm/hr Sodium 135 L (137-145) mmol/L Creatinine 0.60 L (0.7-1.0) mg/dL Glucose 192 H (65-110) mg/dL POC Capillary Glucose 201 H (65-105) mg/dl Hemoglobin A1c (<5.7) % C-Reactive Protein (<1.0) mg/dL Total Protein (6.3-8.2) g/dL Diabetes panel 03/02/24 03/02/24 03/02/24 Range/Units 17:28 17:28 21:51 Sodium 136 L (137-145) mmol/L Potassium 3.6 (3.4-5.0) mmol/L Chloride 100 (98-107) mmol/L Carbon Dioxide 27 (22-30) mmol/L BUN 10 (7-17) mg/dL Creatinine 0.60 L 0.60 L (0.7-1.0) mg/dL Glucose 254 H (65-110) mg/dL Hemoglobin A1c 13.4 H (<5.7) % Calcium 9.5 (8.4-10.2) mg/dL AST 29 (14-36) U/L ALT 19 (6-35) U/L Alkaline Phosphatase 94 (38-126) U/L Total Protein 9.0 H (6.3-8.2) g/dL Albumin 4.2 (3.5-5.1) g/dL 03/03/24 Range/Units 06:24 Sodium 135 L (137-145) mmol/L Potassium 3.4 (3.4-5.0) mmol/L Chloride 104 (98-107) mmol/L Carbon Dioxide 25 (22-30) mmol/L BUN 9 (7-17) mg/dL Creatinine 0.60 L (0.7-1.0) mg/dL Glucose 192 H (65-110) mg/dL Hemoglobin A1c (<5.7) % Calcium 8.7 (8.4-10.2) mg/dL AST (14-36) U/L ALT (6-35) U/L Alkaline Phosphatase (38-126) U/L Total Protein (6.3-8.2) g/dL Albumin (3.5-5.1) g/dL Calcium panel 03/02/24 03/03/24 Range/Units 17:28 06:24 Calcium 9.5 8.7 (8.4-10.2) mg/dL Albumin 4.2 (3.5-5.1) g/dL Pituitary panel 03/02/24 03/02/24 03/03/24 Range/Units 17:28 17: 06:24 Sodium 136 L 135 L (137-145) mmol/L Potassium 3.6 3.4 (3.4-5.0) mmol/L Chloride 100 104 (98-107) mmol/L Carbon Dioxide 27 25 (22-30) mmol/L BUN 10 9 (7-17) mg/dL Creatinine 0.60 L 0.60 L 0.60 L (0.7-1.0) mg/dL Glucose 254 H 192 H (65-110) mg/dL Calcium 9.5 8.7 (8.4-10.2) mg/dL Adrenal panel 03/02/24 03/02/24 03/03/24 Range/Units 17: 17: 06:24 Sodium 136 L 135 L (137-145) mmol/L Potassium 3.6 3.4 (3.4-5.0) mmol/L Chloride 100 104 (98-107) mmol/L Carbon Dioxide 27 25 (22-30) mmol/L BUN 10 9 (7-17) mg/dL Creatinine 0.60 L 0.60 L 0.60 L (0.7-1.0) mg/dL Glucose 254 H 192 H (65-110) mg/dL Calcium 9.5 8.7 (8.4-10.2) mg/dL Total Bilirubin 0.6 (0.2-1.3) mg/dL AST 29 (14-36) U/L ALT 19 (6-35) U/L Alkaline Phosphatase 94 (38-126) U/L Total Protein 9.0 H (6.3-8.2) g/dL Albumin 4.2 (3.5-5.1) g/dL All other labs normal. Imaging Additional studies: ITS Impressions Abdomen/Pelvis CT 03/02/24 18:57 IMPRESSION: Indeterminate 8.2 cm mass within the right hemipelvis, as detailed above. Superficial soft tissue infiltration within the area of clinical concern. Severe degenerative disease at the level of L4/L5, as detailed above. Fatty infiltration of an enlarged liver
--- NOTE | 2024-03-03 10:28 | W.PM.PROC2 ---
Procedure Note - Detailed Date of Procedure 03/03/24 Pre-op Diagnosis Necrotic RLQ abdominal wound Post-op Diagnosis Same Procedure Performed Excisional debridement necrotic right lower quadrant abdominal wound of skin and subcutaneous tissue, measuring 5 cm x 3 cm Surgeon DIOR Cunha Anesthesia None Indications This is a 28 year old uncontrolled diabetic who presented to the ED with a necrotic RLQ abdominal wound. She reports this area starting as a pimple a few weeks ago and noticing a wound over the past 3-4 days. Workup in the ED showed no evidence of deeper infection or abscess on CT. We discussed treatment options and decision was made to proceed with bedside excisional debridement of the necrotic RLQ abdominal wound. Findings Superficial RLQ abdominal wound extending to subcutaneous tissue. No purulent drainage or evidence of an abscess. Description of Procedure The patient was placed in the supine position in the bed. Following this, sterile prep was carried out over the RLQ abdominal wound with iodine swabs. The area was prepped and draped in sterile fashion. I then use a pickups and scissors for debridement of the necrotic tissue in the center of the wound. Debridement was carried down into the subcutaneous tissue. Following this, the wound was inspected and the entire wound bed appeared pink with no further necrotic tissue. There was minimal yellow exudate below the soft eschar, but no purulent drainage. The wound bed was tender, but firm. No fluctuant areas. The area of debridement measured 5 cm x 3 cm x 0.5 cm. After inspecting the wound, silver gel and sterile gauze was applied and covered with medipore tape. Estimated Blood Loss 0 Drains No Packing No Pathology None sent Complications None Condition Stable Disposition No change [facility] Billing Surgery - Charge Forward: Surgery Billing
[2024-03-03 11:16] LABS: Glucose Point of Care 203 mg/dl (65-105)
--- NOTE | 2024-03-03 12:00 | P.PNIM_ITS ---
Progress Note: A&P Assessment and Plan (1) Wound, open, abdominal wall, anterior: Qualifiers: Encounter type: initial encounter Qualified Code(s): S31.109A - Unspecified open wound of abdominal wall, unspecified quadrant without penetra tion into peritoneal cavity, initial encounter Code(s): S31.109A - Unspecified open wound of abdominal wall, unspecified quadrant without penetration into peritoneal cavity, initial encounter Status: Acute Assessment and Plan: Patient's wound does not appear to be overtly infected but is flucuant with a central area of tissue necrosis. ESR 23. CRP 2.2. WBC remains normal and no fevers. GenSurg consult and she underwent debridement. physical therapist technician also consulted. Routine wound care. Continue IV abx. Follow up on cultures. Probably home tomorrow if no issues. (2) Type 2 diabetes mellitus with hyperglycemia, without long-term current use of insulin: Code(s): E11.65 - Type 2 diabetes mellitus with hyperglycemia Status: Acute Assessment and Plan: A1c 13.4%. The patient's blood glucose was reviewed on 03/03 Glucose remains mildly elevated Continue AccuCheks covering with sliding scale. Hypoglycemia protocol available as needed. Consistent carbohydrate diet has been ordered. The importance of compliance with medication therapy with stressed including importance of euglycemia in treating wounds affectively. Patient encouraged to follow-up with her vice president of customer service/shop estimator. Metformin resumed. Add lantus at night. Jumbo Operator and Senior Data Quality Analyst consulted. Continue to follow (3) Pelvic mass: Code(s): R19.00 - Intra-abdominal and pelvic swelling, mass and lump, unspecified site Status: Acute Assessment and Plan: CT scan shows a 8.2cm heterogeneous mass within the deep pelvis, cranial to the uterus, possibly an enlarged fibroid. Patient he has a follow-up with newspaper vendor Will proceed with pelvic and transvaginal ultrasound. Plan DVT Prophylaxis - Lovenox Code status - full Subjective Date/time seen: 03/03/24 12:00 Interval history: 28yo female with DM here for abdominal wound. Patient with debridement this morning. Pain controlled with medications. Does not check her glucose at home often. No fever, chills. No CP, cough . No n/v/d. Was on OCPs to regulate her periods. She has been off OCPs since May and periods remaining stable. Exam Narrative: AF 97.1 114/67 71 12 100% ra Gen - NARD Chest - CTA bilaterally, nml RR CV - RRR S1/S2 Abd - Soft, NT/ND, Positive BS Ext - No pedal edema Psych - Nml mood and affect Skin - Warm and dry. Prior to debridement, she had an oval shaped lesion Rt lower abd quadrant with half-dollar sized yellow-brown boggy eschar that appears to become unroofed with minimal surrounding erythema. Objective Data Vital Signs Vital Signs: Vital Signs - 24 hr 03/02/24 15:58 03/02/24 19:10 03/02/24 21:26 Temperature 97.3 F L 98 F 97.4 F L Pulse Rate 99 98 78 Respiratory Rate 16 16 14 Blood Pressure 148/93 H 138/83 136/81 Pulse Oximetry 100 100 100 Oxygen Delivery Fraction of Inspired Oxygen 03/02/24 22:15 03/03/24 05:29 03/03/24 08:04 Temperature 97.1 F L Pulse Rate 71 Respiratory Rate 12 Blood Pressure 114/67 Pulse Oximetry 100 100 Oxygen Delivery Room Air Room Air Fraction of Inspired Oxygen 03/03/24 08:00 Temperature Pulse Rate Respiratory Rate Blood Pressure Pulse Oximetry Oxygen Delivery Room Air Fraction of Inspired Oxygen Intake/Output Intake/Output: Intake & Output 02/29/24 03/01/24 03/02/24 03/03/24 23:59 23:59 23:59 23:59 Intake Total 500 Balance 500 Meds/Results Medications: Active Medications Generic Name Dose Route Start Last Admin Trade Name Freq PRN Reason Stop Dose Admin Acetaminophen 1,000 mg 03/03/24 09:14 Acetaminophen 500 Mg Tablet PO Q6H PRN Mild Pain (1-3) or Fever Hydrocodone Bitart/Acetaminophen 1 tab 03/03/24 09:15 Hydrocodone/Acetaminophen (*Crx) 5-325 Mg Tablet PO Q6H PRN Pain Rated 7-10 Dextrose 12.5 gm 03/02/24 23:14 Dextrose 50% 25 Gm/50 Ml Syringe IV PUSH PRN PRN Hypoglycemia Protocol Enoxaparin Sodium 40 mg 03/03/24 09:00 03/03/24 08:27 Enoxaparin 40 Mg/0.4 Ml Syringe SUB-Q 40 mg DAILY BASILIO Administration Glucagon 1 mg 03/02/24 23:14 Glucagon For Inj 1 Mg Vial IM PRN PRN Hypoglycemia Protocol Glucose 15 gm 03/02/24 23:14 Glucose Oral Gel 15 Gm Of Glucse In 37.5 Gm Tube PO PRN PRN Hypoglycemia Protocol Vancomycin HCl 1,500 mg in 500 mls @ 250 mls/hr 03/03/24 08:00 03/03/24 08:27 Vancomycin 1,500 Mg/Ns 500 Ml IVPB 250 mls/hr Q12H BASILIO Administration Dextrose 1,000 mls @ 100 mls/hr 03/02/24 23:14 Dextrose 5% 1,000 Ml IVPB PRN PRN Hypoglycemia Protocol Ibuprofen 600 mg 03/03/24 09:14 Ibuprofen 600 Mg Tablet PO Q6H PRN Pain Rated 4-6 Insulin Aspart 2 - 5 units 03/03/24 08:00 03/03/24 08:39 Insulin Aspart (*Bkc) 100 Units/Ml SUB-Q Not Given TIDWM BASILIO Protocol Insulin Aspart 1 - 2 units 03/03/24 21:00 Insulin Aspart (*Bkc) 100 Units/Ml SUB-Q HS BASILIO Protocol Metformin HCl 1,000 mg 03/03/24 09:00 03/03/24 08:32 Metformin Hcl 500 Mg Tablet PO 1,000 mg BID BASILIO Administration Radiology Results: ITS Impressions Abdomen/Pelvis CT 03/02/24 18:57 IMPRESSION: Indeterminate 8.2 cm mass within the right hemipelvis, as detailed above. Superficial soft tissue infiltration within the area of clinical concern. Severe degenerative disease at the level of L4/L5, as detailed above. Fatty infiltration of an enlarged liver Labs Labs: Laboratory Results - last 24 hr 03/02/24 03/02/24 03/02/24 17:28 17:28 17:28 WBC 7.3 RBC 4.99 Hgb 12.8 Hct 40.0 MCV 80.2 MCH 25.7 L MCHC 32.0 RDW 13.8 Plt Count 412 H MPV 9.9 Immature Gran % (Auto) 0.4 Neut % (Auto) 63.8 Lymph % (Auto) 26.1 [place] % (Auto) 8.2 Eos % (Auto) 1.0 Baso % (Auto) 0.5 Lymph # (Auto) 1.91 [place] # (Auto) 0.6 Eos # (Auto) 0.1 Baso # (Auto) 0.0 Abs Immat Gran (auto) 0.03 Absolute Neuts (auto) 4.7 Absolute Nucleated RBC 0.000 Nucleated RBC % 0.0 ESR 23 H Sodium 136 L Potassium 3.6 Chloride 100 Carbon Dioxide 27 Anion Gap 9 BUN 10 Creatinine 0.60 L 0.60 L Estim Creat Clear Calc 146 146 Estimated GFR > 60 Glucose POC Capillary Glucose Hemoglobin A1c Lactic Acid Calcium Total Bilirubin AST ALT Alkaline Phosphatase C-Reactive Protein Total Protein Albumin Procalcitonin POC Urine HCG, Qual 03/02/24 03/02/24 03/02/24 17:28 18:16 21:51 WBC RBC Hgb Hct MCV MCH MCHC RDW Plt Count MPV Immature Gran % (Auto) Neut % (Auto) Lymph % (Auto) [place] % (Auto) Eos % (Auto) Baso % (Auto) Lymph # (Auto) [place] # (Auto) Eos # (Auto) Baso # (Auto) Abs Immat Gran (auto) Absolute Neuts (auto) Absolute Nucleated RBC Nucleated RBC % ESR Sodium Potassium Chloride Carbon Dioxide Anion Gap BUN Creatinine Estim Creat Clear Calc Estimated GFR > 60 Glucose 254 H POC Capillary Glucose Hemoglobin A1c 13.4 H Lactic Acid 1.3 Calcium 9.5 Total Bilirubin 0.6 AST 29 ALT 19 Alkaline Phosphatase 94 C-Reactive Protein 2.2 H Total Protein 9.0 H Albumin 4.2 Procalcitonin 0.1 POC Urine HCG, Qual Negative 03/03/24 03/03/24 03/03/24 06:24 07:27 11:10 WBC 8.3 RBC 4.66 Hgb 11.4 L Hct 37.9 MCV 81.3 MCH 24.5 L MCHC 30.1 L RDW 14.0 Plt Count 390 H MPV 9.9 Immature Gran % (Auto) 0.4 Neut % (Auto) 65.5 Lymph % (Auto) 23.2 [place] % (Auto) 8.8 H Eos % (Auto) 1.7 Baso % (Auto) 0.4 Lymph # (Auto) 1.92 [place] # (Auto) 0.7 H Eos # (Auto) 0.1 Baso # (Auto) 0.0 Abs Immat Gran (auto) 0.03 Absolute Neuts (auto) 5.4 Absolute Nucleated RBC 0.000 Nucleated RBC % 0.0 ESR Sodium 135 L Potassium 3.4 Chloride 104 Carbon Dioxide 25 Anion Gap 6 BUN 9 Creatinine 0.60 L Estim Creat Clear Calc 138 Estimated GFR > 60 Glucose 192 H POC Capillary Glucose 201 H 203 H Hemoglobin A1c Lactic Acid Calcium 8.7 Total Bilirubin AST ALT Alkaline Phosphatase C-Reactive Protein Total Protein Albumin Procalcitonin POC Urine HCG, Qual
[2024-03-03] MEDS: INSULIN ASPART (*BKC) 100 UNITS/ML SUB-Q (13:58)
[2024-03-03 14:00] VITALS: BP 135/75; PULSE 85; RESP 14; TEMP 36.6; O2SAT 100
[2024-03-03 16:29] LABS: Glucose Point of Care 164 mg/dl (65-105)
[2024-03-03 20:25] VITALS: BP 130/95; PULSE 80; RESP 16; TEMP 36.1; O2SAT 99
[2024-03-03] MEDS: INSULIN GLARGINE (*BKC) 100 UNITS/ML 8 UNITS SUB-Q (20:56)
[2024-03-03 21:42] LABS: Glucose Point of Care 170 mg/dl (65-105)
[2024-03-04] MEDS: HYDROcodone/acetaminophen (*CRX) 5-325 MG TABLET 1 TAB PO ×2 (05:46→13:45)
[2024-03-04 06:00] VITALS: BP 128/79; PULSE 73; RESP 18; TEMP 36.6; O2SAT 98
[2024-03-04 07:14] LABS: Anion Gap 7 mmol/L (4-12); Blood Urea Nitrogen 9 mg/dL (7-17); Calcium 8.7 mg/dL (8.4-10.2); Carbon Dioxide 24 mmol/L (22-30); Chloride 106 mmol/L (98-107); Estimated CRCL calculation 138 ml/min; Estimated Glomerular Filt Rate > 60; Glucose 149 mg/dL (65-110); Potassium 3.5 mmol/L (3.4-5.0); Sodium 137 mmol/L (137-145)
[2024-03-04 07:47] LABS: Glucose Point of Care 174 mg/dl (65-105)
[2024-03-04 08:00] VITALS: PULSE 73; RESP 18; O2SAT 98
[2024-03-04] MEDS: metFORMIN HCL 500 MG TABLET 1000 MG PO ×2 (08:00→17:36)
[2024-03-04] MEDS: ENOXAPARIN 40 MG/0.4 ML SYRINGE SUB-Q (08:00)
[2024-03-04] MEDS: VANCOMYCIN 1,500 MG/NS 500 ML 1,500 MG/500 ML BAG 150 MG IVPB (08:43)
--- NOTE | 2024-03-04 09:01 | PM.IMPN ---
Progress Note: A&P Assessment and Plan (1) Obesity (BMI 30-39.9): Code(s): E66.9 - Obesity, unspecified Status: Chronic (2) Pelvic mass: Code(s): R19.00 - Intra-abdominal and pelvic swelling, mass and lump, unspecified site Status: Acute (3) Type 2 diabetes mellitus with hyperglycemia, without long-term current use of insulin: Code(s): E11.65 - Type 2 diabetes mellitus with hyperglycemia Status: Acute (4) Wound, open, abdominal wall, anterior: Qualifiers: Encounter type: initial encounter Qualified Code(s): S31.109A - Unspecified open wound of abdominal wall, unspecified quadrant without penetration into peritoneal cavity, initial encounter Code(s): S31.109A - Unspecified open wound of abdominal wall, unspecified quadrant without penetration into peritoneal cavity, initial encounter Status: Acute Plan (1) Wound, open, abdominal wall, anterior: Qualifiers: Encounter type: initial encounter Qualified Code(s): S31.109A - Unspecified open wound of abdominal wall, unspecified quadrant without penetration into peritoneal cavity, initial encounter Code(s): S31.109A - Unspecified open wound of abdominal wall, unspecified quadrant without penetration into peritoneal cavity, initial encounter Status: Acute Assessment and Plan: Patient's wound does not appear to be overtly infected but is flucuant with a central area of tissue necrosis. ESR 23. CRP 2.2. WBC remains normal and no fevers. GenSurg consult and she underwent debridement. airline counter agent also consulted. Routine wound care. Follow up on cultures. Wound culture: Gram positive cocci in chains. Few Gram negative bacilli Changed to Zyvox p.o., add Flagyl p.o. (2) Type 2 diabetes mellitus with hyperglycemia, without long-term current use of insulin: Code(s): E11.65 - Type 2 diabetes mellitus with hyperglycemia Status: Acute Assessment and Plan: A1c 13.4%. The patient's blood glucose was reviewed on 03/03 Glucose remains mildly elevated Continue AccuCheks covering with sliding scale. Hypoglycemia protocol available as needed. Consistent carbohydrate diet has been ordered. The importance of compliance with medication therapy with stressed including importance of euglycemia in treating wounds affectively. 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 Metformin resumed. Add lantus at night. Poundmaster and Complaint Investigator consulted. Continue to follow (3) Pelvic mass: Code(s): R19.00 - Intra-abdominal and pelvic swelling, mass and lump, unspecified site Status: Acute Assessment and Plan: CT scan shows a 8.2cm heterogeneous mass within the deep pelvis, cranial to the uterus, possibly an enlarged fibroid. Patient he has a follow-up with work and family life consultant Will proceed with pelvic and transvaginal ultrasound. Plan DVT Prophylaxis - Lovenox Code status - full Subjective Date/time seen: 03/04/24 09:01 Interval history: Patient feels pain is better controlled, patient is afebrile, blood pressure stable. Wound culture grows g positive better Exam Narrative: GENERAL: Pleasant, in no acute distress. Well-nourished. Obesity - EYES: EOMI. Anicteric. - HENT: Moist mucous membranes. - LUNGS: Clear to auscultation bilaterally, no wheezing, rhonchi, or rales. - CARDIOVASCULAR: Regular rate and rhythm. No murmur. No JVD. - ABDOMEN: Soft, non-tender and non-distended. No palpable masses. Abscess in the right lower quadrant, dressing is soaked, has foul-smelling - EXTREMITIES: No edema. Peripheral pulses 2+. Non-tender. - NEUROLOGIC: No focal neurological deficits. CN II-XII grossly intact. - PSYCHIATRIC: Awake, Alert and oriented x 3. Appropriate mood and affect. - SKIN: No rashes or lesions. Warm. - LYMPH: No cervical lymphadenopathy. Objective Data Vital Signs Vital Signs: Vital Signs - 24 hr 03/03/24 14:00 03/03/24 20:25 03/03/24 20:00 Temperature 97.9 F 96.9 F L Pulse Rate 85 80 Respiratory Rate 14 16 Blood Pressure 135/75 130/95 H Pulse Oximetry 100 99 Oxygen Delivery Room Air 03/04/24 06:00 Temperature 97.9 F Pulse Rate 73 Respiratory Rate 18 Blood Pressure 128/79 Pulse Oximetry 98 Oxygen Delivery Intake/Output Intake/Output: Intake & Output 03/01/24 03/02/24 03/03/24 03/04/24 23:59 23:59 23:59 23:59 Intake Total 7020 822 Output Total 1 3 Balance 2748 819 Meds/Results Medications: Active Medications Generic Name Dose Route Start Last Admin Trade Name Freq PRN Reason Stop Dose Admin Acetaminophen 1,000 mg 03/03/24 09:14 Acetaminophen 500 Mg Tablet PO Q6H PRN Mild Pain (1-3) or Fever Hydrocodone Bitart/Acetaminophen 1 tab 03/03/24 09:15 03/04/24 05:46 Hydrocodone/Acetaminophen (*Crx) 5-325 Mg Tablet PO 1 tab Q6H PRN Administration Pain Rated 7-10 Dextrose 12.5 gm 03/02/24 23:14 Dextrose 50% 25 Gm/50 Ml Syringe IV PUSH PRN PRN Hypoglycemia Protocol Enoxaparin Sodium 40 mg 03/03/24 09:00 03/04/24 08:00 Enoxaparin 40 Mg/0.4 Ml Syringe SUB-Q 40 mg DAILY [facility] Administration Glucagon 1 mg 03/02/24 23:14 Glucagon For Inj 1 Mg Vial IM PRN PRN Hypoglycemia Protocol Glucose 15 gm 03/02/24 23:14 Glucose Oral Gel 15 Gm Of Glucse In 37.5 Gm Tube PO PRN PRN Hypoglycemia Protocol Vancomycin HCl 1,500 mg in 500 mls @ 250 mls/hr 03/03/24 08:00 03/04/24 08:43 Vancomycin 1,500 Mg/Ns 500 Ml IVPB 150 mls/hr Q12H [facility] Administration Dextrose 1,000 mls @ 100 mls/hr 03/02/24 23:14 Dextrose 5% 1,000 Ml IVPB PRN PRN Hypoglycemia Protocol Ibuprofen 600 mg 03/03/24 09:14 Ibuprofen 600 Mg Tablet PO Q6H PRN Pain Rated 4-6 Insulin Aspart 2 - 5 units 03/03/24 08:00 03/04/24 08:01 Insulin Aspart (*Bkc) 100 Units/Ml SUB-Q Not Given TIDWM [facility] Protocol Insulin Aspart 1 - 2 units 03/03/24 21:00 03/04/24 00:00 Insulin Aspart (*Bkc) 100 Units/Ml SUB-Q Not Given HS [facility] Protocol Insulin Glargine 8 units 03/03/24 21:00 03/03/24 20:56 Insulin Glargine (*Bkc) 100 Units/Ml SUB-Q 8 units HS [facility] Administration Metformin HCl 1,000 mg 03/03/24 09:00 03/04/24 08:00 Metformin Hcl 500 Mg Tablet PO 1,000 mg BID [facility] Administration Radiology Results: ITS Impressions Abdomen/Pelvis CT 03/02/24 18:57 IMPRESSION: Indeterminate 8.2 cm mass within the right hemipelvis, as detailed above. Superficial soft tissue infiltration within the area of clinical concern. Severe degenerative disease at the level of L4/L5, as detailed above. Fatty infiltration of an enlarged liver Pelvic/Transvag US 03/03/24 14:05 IMPRESSION: 1. 8.7 cm mass at the posterior margin of the uterus, consistent with a subserosal fibroid. Labs Labs: Laboratory Results - last 24 hr 03/03/24 03/03/24 03/03/24 11:10 16:25 20:27 Sodium Potassium Chloride Carbon Dioxide Anion Gap BUN Creatinine Estim Creat Clear Calc Estimated GFR Glucose POC Capillary Glucose 203 H 164 H 170 H Calcium Vancomycin Trough 03/04/24 03/04/24 03/04/24 06:48 06:49 07:21 Sodium 137 Potassium 3.5 Chloride 106 Carbon Dioxide 24 Anion Gap 7 BUN 9 Creatinine 0.60 L Estim Creat Clear Calc 138 Estimated GFR > 60 Glucose 149 H POC Capillary Glucose 174 H Calcium 8.7 Vancomycin Trough 10.0
[2024-03-04 09:38] LABS: Thyroid Stimulating Hormone Reflex 0.985 uIU/mL (0.465-4.68)
[2024-03-04 11:52] LABS: Glucose Point of Care 115 mg/dl (65-105)
[2024-03-04 14:00] VITALS: BP 135/80; PULSE 85; RESP 20; TEMP 36.3; O2SAT 100
[2024-03-04 14:45] VITALS: BMI 35.1
--- NOTE | 2024-03-04 16:10 | PM.PNGS ---
Progress Note: A&P Assessment and Plan (1) Wound, open, abdominal wall, anterior: Qualifiers: Encounter type: initial encounter Qualified Code(s): S31.109A - Unspecified open wound of abdominal wall, unspecified quadrant without penetration into peritoneal cavity, initial encounter Code(s): S31.109A - Unspecified open wound of abdominal wall, unspecified quadrant without penetration into peritoneal cavity, initial encounter Status: Acute Assessment and Plan: No further debridement necessary. Continue local wound care with silver gel dressing changes. No deeper abscess or cellulitis. OK to discharge from surgical standpoint. (2) Type 2 diabetes mellitus with hyperglycemia, without long-term current use of insulin: Code(s): E11.65 - Type 2 diabetes mellitus with hyperglycemia Status: Acute Subjective Subjective Date/Time Seen: 03/04/24 16:10 Interval history: Doing well after bedside debridement yesterday. No fevers. Pain improved. Exam Skin: Other: RLQ wound with pink granulation tissue. Minimal yellow exudate. No deeper abscess or erythema. Objective Data Vital Signs Vital Signs: Vital Signs - 24 hr 03/03/24 20:25 03/03/24 20:00 03/04/24 06:00 Temperature 96.9 F L 97.9 F Pulse Rate 80 73 Respiratory Rate 16 18 Blood Pressure 130/95 H 128/79 Pulse Oximetry 99 98 Oxygen Delivery Room Air Fraction of Inspired Oxygen 03/04/24 08:00 03/04/24 14:00 Temperature 97.3 F L Pulse Rate 73 85 Respiratory Rate 18 20 Blood Pressure 135/80 Pulse Oximetry 98 100 Oxygen Delivery Room Air Fraction of Inspired Oxygen 21 Intake/Output Intake/Output: Intake & Output 03/01/24 03/02/24 03/03/24 03/04/24 23:59 23:59 23:59 23:59 Intake Total 2580 1062 Output Total 1 3 Balance 2579 1059 Meds/Results Medications: Active Medications Generic Name Dose Route Start Last Admin Trade Name Freq PRN Reason Stop Dose Admin Acetaminophen 1,000 mg 03/03/24 09:14 Acetaminophen 500 Mg Tablet PO Q6H PRN Mild Pain (1-3) or Fever Hydrocodone Bitart/Acetaminophen 1 tab 03/03/24 09:15 03/04/24 05:46 Hydrocodone/Acetaminophen (*Crx) 5-325 Mg Tablet PO 1 tab Q6H PRN Administration Pain Rated 7-10 Dextrose 12.5 gm 03/02/24 23:14 Dextrose 50% 25 Gm/50 Ml Syringe IV PUSH PRN PRN Hypoglycemia Protocol Enoxaparin Sodium 40 mg 03/03/24 09:00 03/04/24 08:00 Enoxaparin 40 Mg/0.4 Ml Syringe SUB-Q 40 mg DAILY [facility] Administration Glucagon 1 mg 03/02/24 23:14 Glucagon For Inj 1 Mg Vial IM PRN PRN Hypoglycemia Protocol Glucose 15 gm 03/02/24 23:14 Glucose Oral Gel 15 Gm Of Glucse In 37.5 Gm Tube PO PRN PRN Hypoglycemia Protocol Dextrose 1,000 mls @ 100 mls/hr 03/02/24 23:14 Dextrose 5% 1,000 Ml IVPB PRN PRN Hypoglycemia Protocol Ibuprofen 600 mg 03/03/24 09:14 Ibuprofen 600 Mg Tablet PO Q6H PRN Pain Rated 4-6 Insulin Aspart 2 - 5 units 03/03/24 08:00 03/04/24 08:01 Insulin Aspart (*Bkc) 100 Units/Ml SUB-Q Not Given TIDWM [facility] Protocol Insulin Aspart 1 - 2 units 03/03/24 21:00 03/04/24 00:00 Insulin Aspart (*Bkc) 100 Units/Ml SUB-Q Not Given HS [facility] Protocol Insulin Glargine 8 units 03/03/24 21:00 03/03/24 20:56 Insulin Glargine (*Bkc) 100 Units/Ml SUB-Q 8 units HS [facility] Administration Linezolid 600 mg 03/04/24 21:00 Linezolid 600 Mg Tablet PO Q12HR [facility] Metformin HCl 1,000 mg 03/03/24 09:00 03/04/24 08:00 Metformin Hcl 500 Mg Tablet PO 1,000 mg BID [facility] Administration Radiology Results: ITS Impressions Abdomen/Pelvis CT 03/02/24 18:57 IMPRESSION: Indeterminate 8.2 cm mass within the right hemipelvis, as detailed above. Superficial soft tissue infiltration within the area of clinical concern. Severe degenerative disease at the level of L4/L5, as detailed above. Fatty infiltration of an enlarged liver Pelvic/Transvag US 03/03/24 14:05 IMPRESSION: 1. 8.7 cm mass at the posterior margin of the uterus, consistent with a subserosal fibroid. Labs Labs: Laboratory Results - last 24 hr 03/03/24 03/03/24 03/04/24 16:25 20:27 06:48 Sodium 137 Potassium 3.5 Chloride 106 Carbon Dioxide 24 Anion Gap 7 BUN 9 Creatinine 0.60 L Estim Creat Clear Calc 138 Estimated GFR > 60 Glucose 149 H POC Capillary Glucose 164 H 170 H Calcium 8.7 TSH (Reflex) 0.985 Vancomycin Trough 03/04/24 03/04/24 03/04/24 06:49 07:21 11:49 Sodium Potassium Chloride Carbon Dioxide Anion Gap BUN Creatinine Estim Creat Clear Calc Estimated GFR Glucose POC Capillary Glucose 174 H 115 H Calcium TSH (Reflex) Vancomycin Trough 10.0
[2024-03-04 16:32] LABS: Glucose Point of Care 146 mg/dl (65-105)
[2024-03-04 21:01] LABS: Glucose Point of Care 113 mg/dl (65-105)
[2024-03-04] MEDS: metroNIDAZOLE 500 MG TABLET PO (21:05)
[2024-03-04] MEDS: LINEZOLID 600 MG TABLET PO (21:05)
[2024-03-04] MEDS: INSULIN GLARGINE (*BKC) 100 UNITS/ML 8 UNITS SUB-Q (21:05)
[2024-03-04 21:16] VITALS: BP 140/88; PULSE 78; RESP 18; TEMP 36.4; O2SAT 100
[2024-03-05] MEDS: metroNIDAZOLE 500 MG TABLET PO (05:57)
[2024-03-05 06:00] VITALS: BP 123/73; PULSE 60; RESP 16; TEMP 36.6; O2SAT 100
[2024-03-05 07:42] LABS: Glucose Point of Care 121 mg/dl (65-105)
[2024-03-05] MEDS: LINEZOLID 600 MG TABLET PO (08:11)
[2024-03-05] MEDS: ENOXAPARIN 40 MG/0.4 ML SYRINGE SUB-Q (08:11)
[2024-03-05] MEDS: metFORMIN HCL 500 MG TABLET 1000 MG PO (08:11)
[2024-03-05] MEDS: HYDROcodone/acetaminophen (*CRX) 5-325 MG TABLET 1 TAB PO (08:17)
--- NOTE | 2024-03-05 09:33 | P.PNIM_ITS ---
Progress Note: A&P Assessment and Plan (1) Obesity (BMI 30-39.9): Code(s): E66.9 - Obesity, unspecified Status: Chronic (2) Pelvic mass: Code(s): R19.00 - Intra-abdominal and pelvic swelling, mass and lump, unspecified site Status: Acute (3) Type 2 diabetes mellitus with hyperglycemia, without long-term current use of insulin: Code(s): E11.65 - Type 2 diabetes mellitus with hyperglycemia Status: Acute (4) Wound, open, abdominal wall, anterior: Qualifiers: Encounter type: initial encounter Qualified Code(s): S31.109A - Unspecified open wound of abdominal wall, unspecified quadrant without penetration into peritoneal cavity, initial encounter Code(s): S31.109A - Unspecified open wound of abdominal wall, unspecified quadrant without penetration into peritoneal cavity, initial encounter Status: Acute Plan (1) Wound, open, abdominal wall, anterior: Qualifiers: Encounter type: initial encounter Qualified Code(s): S31.109A - Unspecified open wound of abdominal wall, unspecified quadrant without penetration into peritoneal cavity, initial encounter Code(s): S31.109A - Unspecified open wound of abdominal wall, unspecified quadrant without penetration into peritoneal cavity, initial encounter Status: Acute Assessment and Plan: Patient's wound does not appear to be overtly infected but is flucuant with a central area of tissue necrosis. ESR 23. CRP 2.2. WBC remains normal and no fevers. GenSurg consult and she underwent debridement. communications engineering technician also consulted. Routine wound care. Follow up on cultures. Wound culture: Gram positive cocci in chains. Few Gram negative bacilli Changed to Zyvox p.o., add Flagyl p.o. 03/05: Wound culture grows staphylococcal aureus, group B Streptococcus, peptostreptococcus. Discussed with ID from 6, changed to Zyvox p.o. and continue for 4 more days (2) Type 2 diabetes mellitus with hyperglycemia, without long-term current use of insulin: Code(s): E11.65 - Type 2 diabetes mellitus with hyperglycemia Status: Acute Assessment and Plan: A1c 13.4%. The patient's blood glucose was reviewed on 03/03 Glucose remains mildly elevated Continue AccuCheks covering with sliding scale. Hypoglycemia protocol available as needed. Consistent carbohydrate diet has been ordered. The importance of compliance with medication therapy with stressed including importance of euglycemia in treating wounds affectively. 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 Metformin resumed. Add lantus at night. Manager Underwriting and Clinical Audiologist consulted. Resume home medication on discharge (3) Pelvic mass: Code(s): R19.00 - Intra-abdominal and pelvic swelling, mass and lump, unspecified site Status: Acute Assessment and Plan: CT scan shows a 8.2cm heterogeneous mass within the deep pelvis, cranial to the uterus, possibly an enlarged fibroid. 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 Plan DVT Prophylaxis - Lovenox Code status - full Subjective Date/time seen: 03/05/24 09:33 Interval history: patient is afebrile, blood pressure stable. Wound culture grows staphylococcal aureus, group B Streptococcus, peptostreptococcus Exam Narrative: GENERAL: Pleasant, in no acute distress. Well-nourished. - EYES: EOMI. Anicteric. - HENT: Moist mucous membranes. - LUNGS: Clear to auscultation bilateral ly, no wheezing, rhonchi, or rales. - CARDIOVASCULAR: Regular rate and rhyth m. No murmur. No JVD. - ABDOMEN: Soft, non-tender and non-dist ended. No palpable masses. Wound is well dressed, dressings dry and clean - EXTREMITIES: No edema. Peripheral puls es 2+. Non-tender. - NEUROLOGIC: No focal neurological defi cits. CN II-XII grossly intact. - PSYCHIATRIC: Awake, Alert and oriented x 3. Appropriate mood and affect. - SKIN: No rashes or lesions. Warm. - LYMPH: No cervical lymphadenopathy. Objective Data Vital Signs Vital Signs: Vital Signs - 24 hr 03/04/24 14:00 03/04/24 21:16 03/05/24 06:00 Temperature 97.3 F L 97.6 F 97.9 F Pulse Rate 85 78 60 Respiratory Rate 20 18 16 Blood Pressure 135/80 140/88 123/73 Pulse Oximetry 100 100 100 Intake/Output Intake/Output: Intake & Output 03/02/24 03/03/24 03/04/24 03/05/24 23:59 23:59 23:59 23:59 Intake Total 2580 1542 250 Output Total 1 3 Balance 7093 6399 250 Meds/Results Medications: Active Medications Generic Name Dose Route Start Last Admin Trade Name Freq PRN Reason Stop Dose Admin Acetaminophen 1,000 mg 03/03/24 09:14 Acetaminophen 500 Mg Tablet PO Q6H PRN Mild Pain (1-3) or Fever Hydrocodone Bitart/Acetaminophen 1 tab 03/03/24 09:15 03/05/24 08:17 Hydrocodone/Acetaminophen (*Crx) 5-325 Mg Tablet PO 1 tab Q6H PRN Administration Pain Rated 7-10 Dextrose 12.5 gm 03/02/24 23:14 Dextrose 50% 25 Gm/50 Ml Syringe IV PUSH PRN PRN Hypoglycemia Protocol Enoxaparin Sodium 40 mg 03/03/24 09:00 03/05/24 08:11 Enoxaparin 40 Mg/0.4 Ml Syringe SUB-Q 40 mg DAILY [facility] Administration Glucagon 1 mg 03/02/24 23:14 Glucagon For Inj 1 Mg Vial IM PRN PRN Hypoglycemia Protocol Glucose 15 gm 03/02/24 23:14 Glucose Oral Gel 15 Gm Of Glucse In 37.5 Gm Tube PO PRN PRN Hypoglycemia Protocol Dextrose 1,000 mls @ 100 mls/hr 03/02/24 23:14 Dextrose 5% 1,000 Ml IVPB PRN PRN Hypoglycemia Protocol Ibuprofen 600 mg 03/03/24 09:14 Ibuprofen 600 Mg Tablet PO Q6H PRN Pain Rated 4-6 Insulin Aspart 2 - 5 units 03/03/24 08:00 03/05/24 08:12 Insulin Aspart (*Bkc) 100 Units/Ml SUB-Q Not Given TIDWM [facility] Protocol Insulin Aspart 1 - 2 units 03/03/24 21:00 03/04/24 21:09 Insulin Aspart (*Bkc) 100 Units/Ml SUB-Q Not Given HS [facility] Protocol Insulin Glargine 8 units 03/03/24 21:00 03/04/24 21:05 Insulin Glargine (*Bkc) 100 Units/Ml SUB-Q 8 units HS [facility] Administration Linezolid 600 mg 03/04/24 21:00 03/05/24 08:11 Linezolid 600 Mg Tablet PO 03/08/24 23:59 600 mg Q12HR [facility] Administration Metformin HCl 1,000 mg 03/03/24 09:00 03/05/24 08:11 Metformin Hcl 500 Mg Tablet PO 1,000 mg BID [facility] Administration Radiology Results: ITS Impressions Abdomen/Pelvis CT 03/02/24 18:57 IMPRESSION: Indeterminate 8.2 cm mass within the right hemipelvis, as detailed above. Superficial soft tissue infiltration within the area of clinical concern. Severe degenerative disease at the level of L4/L5, as detailed above. Fatty infiltration of an enlarged liver Pelvic/Transvag US 03/03/24 14:05 IMPRESSION: 1. 8.7 cm mass at the posterior margin of the uterus, consistent with a subserosal fibroid. Labs Labs: Laboratory Results - last 24 hr 03/04/24 03/04/24 03/04/24 06:48 11:49 16:28 POC Capillary Glucose 115 H 146 H TSH (Reflex) 0.985 03/04/24 03/05/24 20:56 07:20 POC Capillary Glucose 113 H 121 H TSH (Reflex)
--- NOTE | 2024-03-05 09:34 | P.DS_ITS ---
DS: Admitting Diagnosis Discharge Date 03/05 Admitting Diagnosis (1) Obesity (BMI 30-39.9): Code(s): E66.9 - Obesity, unspecified Status: Chronic (2) Pelvic mass: Code(s): R19.00 - Intra-abdominal and pelvic swelling, mass and lump, unspecified site Status: Acute (3) Type 2 diabetes mellitus with hyperglycemia, without long-term current use of insulin: Code(s): E11.65 - Type 2 diabetes mellitus with hyperglycemia Status: Acute (4) Wound, open, abdominal wall, anterior: Qualifiers: DS: Discharge Diagnosis Discharge Diagnosis (1) Obesity (BMI 30-39.9): Code(s): E66.9 - Obesity, unspecified Status: Chronic (2) Pelvic mass: Code(s): R19.00 - Intra-abdominal and pelvic swelling, mass and lump, unspecified site Status: Acute (3) Type 2 diabetes mellitus with hyperglycemia, without long-term current use of insulin: Code(s): E11.65 - Type 2 diabetes mellitus with hyperglycemia Status: Acute (4) Wound, open, abdominal wall, anterior: Qualifiers: Encounter type: initial encounter Qualified Code(s): S31.109A - Unspecified open wound of abdominal wall, unspecified quadrant without penetration into peritoneal cavity, initial encounter Code(s): S31.109A - Unspecified open wound of abdominal wall, unspecified quadrant without penetration into peritoneal cavity, initial encounter Status: Acute DS: Summary Hospital Course Hospital Course: 28-year-old female with past medical history of uncontrolled type 2 diabetes mellitus and obesity who presented to the ER from home due to a wound to her right lower pannus. Patient reported that 2 weeks ago she had a small pimple to the right lower abdomen. She reported that she did not pick or prod the area. The pustule did open on its own. It was a small area consistent with prior such sites that she has had before. A few days ago she noticed a small amount of clear fluid draining from the area. Then 2 days ago she noticed a wound was much larger and was tender to touch. She also noticed some yellow tissue in the area. She has had diabetes since approximately 2016. She is on metformin is post to take it b.i.d.. She reports that she frequently misses her metformin due to her busy work schedule. She does not check her blood sugars. Her glucoses on arrival to the ER were around 250. She has not had any fevers, chills, abdominal pain, nausea, vomiting or urinary symptoms. CT scan of the abdomen pelvis were performed in the ER and demonstrated superficial soft tissue infiltration in the area of the open wound. She also had incidental finding of indeterminate E 0.2 cm by 6 x 7 cm mass in the right hemipelvis. She reports a distant history of metrorrhagia for which she was placed on control pills. She reports she stopped the control pills in May in his had normal menstrual cycles since then. She denies any excessive menstrual cramps or abdominal pain. She had a negative urine test in the ER. She denies any urinary frequency or symptoms. She states that she is currently at the end of her menstrual cycle. She has developed hirsutism was a moved since around the beginning of . She is obese. She states her boyfriend of 4 months this told her that she occasionally snores. She denies any excessive daytime fatigue or sleepiness. It sounds as if her weight has been stable. She has not followed up with a operations assistant recently. She has not followed up with an eye doctor in the last year or 2. At the time of my evaluation the patient's right eye did not initially move in a conjugate manner with the left eye but this resolved on re-evaluation. She reports that her father has a lazy eye but she has never been diagnosed with visual issues. She denies double vision. During hospitalization, following med issues have been addressed during hospitalization (1) Wound, open, abdominal wall, anterior: Qualifiers: Encounter type: initial encounter Qualified Code(s): S31.109A - Unspecified open wound of abdominal wall, unspecified quadrant without penetration into peritoneal cavity, initial encounter Code(s): S31.109A - Unspecified open wound of abdominal wall, unspecified quadrant without penetration into peritoneal cavity, initial encounter Status: Acute Assessment and Plan: Patient's wound does not appear to be overtly infected but is flucuant with a central area of tissue necrosis. ESR 23. CRP 2.2. WBC remains normal and no fevers. GenSurg consult and she underwent debridement. cigar wrapper also consulted. Routine wound care. Follow up on cultures. Wound culture: Gram positive cocci in chains. Few Gram negative bacilli Changed to Zyvox p.o., add Flagyl p.o. 03/05: Wound culture grows staphylococcal aureus, group B Streptococcus, peptostreptococcus. Discussed with ID from 6, changed to Zyvox p.o. and continue for 4 more days (2) Type 2 diabetes mellitus with hyperglycemia, without long-term current use of insulin: Code(s): E11.65 - Type 2 diabetes mellitus with hyperglycemia Status: Acute Assessment and Plan: A1c 13.4%. The patient's blood glucose was reviewed on 03/03 Glucose remains mildly elevated Continue AccuCheks covering with sliding scale. Hypoglycemia protocol available as needed. Consistent carbohydrate diet has been ordered. The importance of compliance with medication therapy with stressed including i mportance of euglycemia in treating wounds affectively. 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 Metformin resumed. Add lantus at night. Education General Manager and Ladle Liner Helper consulted. Resume home medication on discharge (3) Pelvic mass: Code(s): R19.00 - Intra-abdominal and pelvic swelling, mass and lump, unspecified site Status: Acute Assessment and Plan: CT scan shows a 8.2cm heterogeneous mass within the deep pelvis, cranial to the uterus, possibly an enlarged fibroid. Patient he has a follow-up with research project coordinator Will proceed with pelvic and transvaginal ultrasound. Plan DVT Prophylaxis - Lovenox Code status - job coach/job developer Spent with Patient Time attestation: Total time spent providing and/or coordinating discharge services: Exam Narrative: GENERAL: Pleasant, in no acute distress. Well-nourished. - EYES: EOMI. Anicteric. - HENT: Moist mucous membranes. - LUNGS: Clear to auscultation bilateral ly, no wheezing, rhonchi, or rales. - CARDIOVASCULAR: Regular rate and rhyth m. No murmur. No JVD. - ABDOMEN: Soft, non-tender and non-dist ended. No palpable masses. Wound is well dressed, dressings dry and clean - EXTREMITIES: No edema. Peripheral puls es 2+. Non-tender. - NEUROLOGIC: No focal neurological defi cits. CN II-XII grossly intact. - PSYCHIATRIC: Awake, Alert and oriented x 3. Appropriate mood and affect. - SKIN: No rashes or lesions. Warm. - LYMPH: No cervical lymphadenopathy. DS: Data Data Completed and Pending Labs on day of discharge: Labs from last 24 hours 03/05/24 03/04/24 03/04/24 07:20 20:56 16:28 POC Capillary Glucose 121 H 113 H 146 H TSH (Reflex) 03/04/24 03/04/24 11:49 06:48 POC Capillary Glucose 115 H TSH (Reflex) 0.985 Preliminary micro results at discharge 03/02/24 17:28 Anaerobic Culture - Preliminary Abdomen Peptostreptococcus species Aerobic Culture - Preliminary Staphylococcus aureus Group B Streptococcus isolated 03/02/24 17:28 Blood Culture - Preliminary Blood 03/02/24 17:37 Blood Culture - Preliminary Blood Discharge Plan Discharge Attending physician on discharge: Juan C Guevara Consulting providers: Sammy Colon Discharging Clinician: Juan C Guevara Anticipated Discharge Date/Time: 03/05/24 09:34 Patient Disposition: Home, Self-Care Activity: may shower and as tolerated Diet: heart healthy Wound Care Instructions: follow printed instructions Patient Instructions: Antibiotic Form, Pain Management (DC) Stand Alone Forms: General Discharge Information Follow-up/Referrals: Chiara Marie PA [Primary Care Provider] - (Patient needs to see primary care provider in 1 week) Sammy Colon DO [Physician] - (Patient needs to call general surgeon for follow-up appointment) Discharge Medications: New linezolid 600 mg Tablet 600 mg PO Q12HR Qty: 7 0RF Continued metformin 1,000 mg Tablet 1,000 mg PO BID Date of admission: 03/02/24 20:28 Primary Care Provider: Chiara Marie Admitting Provider: Katy Villavicencio Attending physician on admission: Katy Villavicencio Condition: Stable
[2024-03-05 11:26] LABS: Glucose Point of Care 124 mg/dl (65-105)
== END 2024-03-05 11:55 | disposition home or self-care (01) ==
LOC: ANHED 20:28 → ANH3MEDSUR 21:06
PROVIDERS: Internal Medicine; Admitting Provider Internal Medicine; Emergency Provider Physician Assistant; PCP Physician Assistant; Visit Provider Hospitalist
DX: S31.103A Unspecified open wound of abdominal wall, right lower quadrant without penetration into peritoneal cavity, initial encounter (principal); B95.61 Methicillin susceptible Staphylococcus aureus infection as the cause of diseases classified elsewhere; B95.1 Streptococcus, group B, as the cause of diseases classified elsewhere; B96.89 Other specified bacterial agents as the cause of diseases classified elsewhere; X58.XXXA Exposure to other specified factors, initial encounter; E11.65 Type 2 diabetes mellitus with hyperglycemia; E66.9 Obesity, unspecified; Z68.35 Body mass index [BMI] 35.0-35.9, adult; R19.09 Other intra-abdominal and pelvic swelling, mass and lump; L68.0 Hirsutism; K76.0 Fatty (change of) liver, not elsewhere classified; M51.369 Other intervertebral disc degeneration, lumbar region without mention of lumbar back pain or lower extremity pain; Z32.02 Encounter for pregnancy test, result negative; Z91.119 Patient's noncompliance with dietary regimen due to unspecified reason; Z79.84 Long term (current) use of oral hypoglycemic drugs
CPT/HCPCS: 11042; 36415; 74177; 76830; 76856; 80048; 80053; 80202; 81025; 82565; 82948; 83036; 83605; 84145; 84443; 85025; 85652; 86140; 87040; 87070; 87075; 87181; 87205; 96374; 96375; 99212; 99285; A9270; G0378; G0379; G0463; J1650; J1815; J2270; J3370; Q9967